=== PATIENT | female | born 1940 | race Caucasian/White ===

== ENCOUNTER 2020-04-12 04:56 | Day surgery (SDC) | payer BC ==
[2020-04-09 17:09] VITALS: BMI 31.2
[2020-04-12 13:02] VITALS: TEMP 97.9
[2020-04-12 13:08] VITALS: BP 160/90; PULSE 74
--- NOTE | 2020-04-15 11:04 | PATH ---
Surgical Pathology Report Patient Name: TRAN JEAN [facility]. Rec. #: [id number] /Age/Gender: 1940 (Age: 79) / F Account: [id number] Location: RADIOLOGY INTER Taken: 04/12/2020 Received: 04/13/2020 Reported: 04/15/2020 Physicians: Dara Wren M.D. 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 DEEPER LEVELS HAVE BEEN EXAMINED. SEE COMMENT. Comment: Findings are insufficient for definitive evaluation. In view of the clinical presentation of large calf mass and worrisome imaging findings, repeat sampling with larger tissue sample for diagnosis and possible (molecular) work-up is suggested. Electronically Signed Nneka Landaverde M.D. Gross Description Received in formalin labeled "left calf biopsy," is a 1.0 x 0.6 x 0.1 cm aggregate of armstrong soft tissue fragments. The formalin is filtered and the specimen is entirely submitted in one cassette. /04/13/2020 saudi04/13/2020
== END 2020-04-12 12:30 | disposition home or self-care (01) ==
LOC: JRADIR 04:56
PROVIDERS: ATTEND Family Medicine
PROC: 0KBT0ZX Excision of Left Lower Leg Muscle, Open Approach, Diagnostic (ICD-10-PCS; principal; 2020-04-12)
DX: D48.1 Neoplasm of uncertain behavior of connective and other soft tissue (principal)
CPT/HCPCS: 20206; 88305-TC

== ENCOUNTER 2022-03-12 19:00 | Emergency (ER) | payer BC ==
[2022-03-12 19:46] VITALS: PULSE 76; TEMP 98.9; BMI 29.2
[2022-03-12 20:44] LABS: BASO % 0.7 % (0-2.0); EOS % 1.2 % (0-4.5); HEMATOCRIT 32.7 % (32.4-45.2); HEMOGLOBIN 10.7 GM/dL (10.7-15.3); LYMPH % 15.2 % (8-40); MCH 29.4 pg (25.7-33.7); MCHC 32.7 g/dl (32.0-36.0); MEAN CELL VOLUME 89.9 fl (80-96); MONO % 4.6 % (3.8-10.2); NEUT % 78.3 % (42.8-82.8); PLATELET COUNT 332 10^3/uL (134-434); RBC 3.64 M/mm3 (3.60-5.2); RDW 17.4 % (11.6-15.6); WHITE BLOOD COUNT 12.6 K/mm3 (4.0-10.0)
[2022-03-12 20:55] LABS: ALBUMIN 3.8 g/dl (3.4-5.0); CALCIUM 9.4 mg/dL (8.5-10.1)
[2022-03-12 20:58] LABS: CREATININE 1.3 mg/dL (0.55-1.3)
[2022-03-12 21:00] LABS: BILIRUBIN,TOTAL 0.7 mg/dL (0.2-1)
[2022-03-12 21:03] LABS: N-TERMINAL BNP 830.6 pg/ml (5-450)
[2022-03-12 21:17] LABS: TOT PROT 7.3 g/dl (6.4-8.2)
[2022-03-12] MEDS ORDERED: DOXYCYCLINE HYCLATE 100 MG CAPSULE PO ONE ×2 (21:35→22:12)
[2022-03-12] MEDS ORDERED: FUROSEMIDE 40 MG/4 ML INJECTABLE VIAL IVPUSH ONE (22:46)
[2022-03-12] MEDS ORDERED: FUROSEMIDE 40 MG/4 ML INJECTABLE VIAL ONE (23:16)
[2022-03-13 00:24] VITALS: BP 158/84
== END 2022-03-13 00:24 | disposition home or self-care (01) ==
LOC: JER 19:00
PROC: 3E033NZ Introduction of Analgesics, Hypnotics, Sedatives into Peripheral Vein, Percutaneous Approach (ICD-10-PCS; principal; 2022-03-12)
DX: R60.9 Edema, unspecified (principal); L03.116 Cellulitis of left lower limb
CPT/HCPCS: 36415; 71046-TC-FY; 80053; 83880; 84484; 85025; 93005; 93010; 93970-TC; 96374; 99284-25; C9803-CS; U0003; U0005

== ENCOUNTER 2022-03-29 14:01 | Inpatient (IN) | payer BC ==
[2022-03-29 15:49] LABS: HEMATOCRIT 33.7 % (32.4-45.2); HEMOGLOBIN 10.7 GM/dL (10.7-15.3); MCH 27.4 pg (25.7-33.7); MCHC 31.6 g/dl (32.0-36.0); MEAN CELL VOLUME 86.5 fl (80-96); MEAN PLT VOLUME 9.4 fl (7.5-11.1); PLATELET COUNT 237 10^3/uL (134-434); RBC 3.89 M/mm3 (3.60-5.2); RDW 16.3 % (11.6-15.6); WHITE BLOOD COUNT 14.1 K/mm3 (4.0-10.0)
[2022-03-29 15:52] LABS: INR 1.09 (0.83-1.09); PROTHROMBIN TIME (PATIENT) 12.6 SEC (9.7-13.0)
[2022-03-29 15:55] LABS: ACTIVATED PTT 19.1 SECONDS (25.2-36.5)
[2022-03-29 16:08] LABS: CALCIUM 9.1 mg/dL (8.5-10.1)
[2022-03-29 16:09] LABS: ALBUMIN 3.3 g/dl (3.4-5.0); BLOOD UREA NITROGEN 15.2 mg/dL (7-18)
[2022-03-29 16:12] LABS: CREATININE 0.9 mg/dL (0.55-1.3)
[2022-03-29 16:13] LABS: TOT PROT 7.4 g/dl (6.4-8.2)
[2022-03-29 16:14] LABS: BILIRUBIN,TOTAL 0.9 mg/dL (0.2-1)
[2022-03-29 16:17] LABS: N-TERMINAL BNP 949.8 pg/ml (5-450)
[2022-03-29 17:12] LABS: ANISOCYTOSIS 1+; MACROCYTOSIS 0
[2022-03-29] MEDS ORDERED: AZITHROMYCIN IVPB 500 MG in DEXTROSE 5%-WATER - 250 ML IVPB ONE (17:55)
[2022-03-29] MEDS ORDERED: CEFTRIAXONE 1 GM in DEXTROSE 5%-WATER - 100 ML IVPB ONE (17:55)
[2022-03-29] MEDS ORDERED: methylPREDNISolone NA SUCC 125 MG/2 ML VIAL IVPUSH ONE (17:56)
[2022-03-29] MEDS: ALBUTEROL SO4 2.5/IPRATROPIUM 0.5 INH SOL 3 ML VIAL.NEB. NEB SCH ×3 (18:00→18:38)
[2022-03-29] MEDS ORDERED: ALBUTEROL SO4 2.5/IPRATROPIUM 0.5 INH SOL 3 ML VIAL.NEB. NEB ONE (18:22)
[2022-03-29] MEDS ORDERED: methylPREDNISolone NA SUCC 125 MG/2 ML VIAL ONE (18:23)
[2022-03-29] MEDS ORDERED: CEFTRIAXONE 1 GM/50 ML BAG ONE (18:23)
[2022-03-29] MEDS ORDERED: AZITHROMYCIN IVPB 500 MG/250 ML BAG IVPB ONE (18:23)
[2022-03-29 21:22] LABS: EPI CELLS 33 /uL (0-25.1); HYALINE CASTS 2 /uL (0-3.1); URINE APPEARANCE Clear; URINE BACTERIA 23 /uL (0-1359); URINE BILIRUBIN Negative (NEGATIVE); URINE COLOR Yellow; URINE GLUCOSE (UA) Negative (NEGATIVE); URINE KETONE Negative (NEGATIVE); URINE LEUK ESTERASE Negative (NEGATIVE); URINE NITRITE Negative (NEGATIVE); URINE PROTEIN 30 (NEGATIVE); URINE RBC 17 /uL (0-23.9); URINE UROBILINOGEN 0.2 mg/dL (0.2-1.0); URINE WBC 11 /uL (0-25.8)
[2022-03-30] MEDS ORDERED: INSULIN SLIDING SCALE (NOVOLOG) 1 VIAL SQ SCH (07:00)
[2022-03-30] MEDS ORDERED: CEFTRIAXONE 1 GM/50 ML BAG ONE (07:40)
[2022-03-30] MEDS: FAMOTIDINE 20 MG/50 ML IVPB 20 MG/50 ML MG IVPB SCH ×2 (07:53)
[2022-03-30] MEDS: CEFTRIAXONE 1 GM in DEXTROSE 5%-WATER - 50 ML IVPB SCH ×2 (07:53)
[2022-03-30] MEDS ORDERED: AZITHROMYCIN IVPB 250 MG in DEXTROSE 5%-WATER - 250 ML IVPB SCH ×2 (08:01→10:00)
[2022-03-30 08:14] LABS: HEMATOCRIT 29.4 % (32.4-45.2); HEMOGLOBIN 9.6 GM/dL (10.7-15.3); MCH 27.9 pg (25.7-33.7); MCHC 32.5 g/dl (32.0-36.0); MEAN CELL VOLUME 85.8 fl (80-96); MEAN PLT VOLUME 9.6 fl (7.5-11.1); PLATELET COUNT 221 10^3/uL (134-434); RBC 3.42 M/mm3 (3.60-5.2); RDW 16.7 % (11.6-15.6); WHITE BLOOD COUNT 10.3 K/mm3 (4.0-10.0)
[2022-03-30 08:43] LABS: BLOOD UREA NITROGEN 12.1 mg/dL (7-18); CALCIUM 9.1 mg/dL (8.5-10.1); MAGNESIUM 2.5 mg/dL (1.8-2.4)
[2022-03-30 08:46] LABS: CREATININE 0.8 mg/dL (0.55-1.3); PHOSPHOROUS 4.9 mg/dL (2.5-4.9)
[2022-03-30 08:47] LABS: BILIRUBIN,TOTAL 0.7 mg/dL (0.2-1)
[2022-03-30 08:48] LABS: TOT PROT 6.7 g/dl (6.4-8.2)
[2022-03-30] MEDS ORDERED: DEXAMETHASONE SOD PHOSPHATE 10 MG/1 ML VIAL ONE (09:19)
[2022-03-30] MEDS ORDERED: NICOTINE 14 MG/24 HOURS TOPICAL PATCH TD ONE (09:19)
[2022-03-30] MEDS ORDERED: HYDROCHLOROTHIAZIDE 25 MG TABLET (FP) ONE (09:19)
[2022-03-30] MEDS ORDERED: ENOXAPARIN NA (PORCINE) 40 MG/0.4 ML DISP.SYRIN SQ ONE (09:19)
[2022-03-30] MEDS ORDERED: REMDESIVIR 100 MG in SODIUM CHLORIDE 270 ML IVPB ONE (10:00)
[2022-03-30] MEDS ORDERED: DEXAMETHASONE SOD PHOSPHATE 4 MG/1 ML VIAL IVPUSH SCH (10:00)
[2022-03-30] MEDS ORDERED: CEFTRIAXONE 1 GM in DEXTROSE 5%-WATER - 50 ML IVPB SCH (10:00)
[2022-03-30] MEDS: ENOXAPARIN NA (PORCINE) 40 MG/0.4 ML DISP.SYRIN SQ SCH (10:25)
[2022-03-30] MEDS: NICOTINE 14 MG/24 HOURS TOPICAL PATCH TD SCH (10:25)
[2022-03-30] MEDS: HYDROCHLOROTHIAZIDE 25 MG TABLET (FP) PO SCH (10:25)
[2022-03-30] MEDS: INSULIN SLIDING SCALE (NOVOLOG) 1 VIAL SQ SCH ×3 (10:26→21:54)
[2022-03-30] MEDS ORDERED: REMDESIVIR 200 MG in SODIUM CHLORIDE 250 ML IVPB ONE (11:00)
[2022-03-30] MEDS ORDERED: methylPREDNISolone NA SUCC 40 MG/1 ML VIAL ONE ×2 (14:30→17:46)
[2022-03-30] MEDS ORDERED: ACETAMINOPHEN 500 MG TABLET (FP) ONE (14:30)
[2022-03-30] MEDS ORDERED: ACETAMINOPHEN 500 MG TABLET (FP) PO ONE (14:30)
[2022-03-30] MEDS: methylPREDNISolone NA SUCC 40 MG/1 ML VIAL IVPUSH SCH ×2 (14:38→18:46)
[2022-03-30] MEDS: ROSUVASTATIN CA 20 MG TABLET PO SCH (22:42)
[2022-03-31] MEDS: methylPREDNISolone NA SUCC 40 MG/1 ML VIAL IVPUSH SCH ×3 (01:27→17:57)
[2022-03-31] MEDS: INSULIN SLIDING SCALE (NOVOLOG) 1 VIAL SQ SCH ×4 (06:20→21:05)
[2022-03-31] MEDS: FAMOTIDINE 20 MG/50 ML IVPB 20 MG/50 ML MG IVPB SCH (11:14)
[2022-03-31] MEDS: NICOTINE 14 MG/24 HOURS TOPICAL PATCH TD SCH (11:14)
[2022-03-31] MEDS: HYDROCHLOROTHIAZIDE 25 MG TABLET (FP) PO SCH (11:14)
[2022-03-31] MEDS: ENOXAPARIN NA (PORCINE) 40 MG/0.4 ML DISP.SYRIN SQ SCH (11:14)
[2022-03-31] MEDS: REMDESIVIR 100 MG in SODIUM CHLORIDE 250 ML IVPB SCH (12:06)
[2022-03-31 12:09] LABS: HEMATOCRIT 30.3 % (32.4-45.2); HEMOGLOBIN 9.5 GM/dL (10.7-15.3); MCHC 31.3 g/dl (32.0-36.0); MEAN CELL VOLUME 86.2 fl (80-96); MEAN PLT VOLUME 10.3 fl (7.5-11.1); PLATELET COUNT 287 10^3/uL (134-434); RBC 3.51 M/mm3 (3.60-5.2); WHITE BLOOD COUNT 18.9 K/mm3 (4.0-10.0)
[2022-03-31 12:47] LABS: BLOOD UREA NITROGEN 31.3 mg/dL (7-18); CALCIUM 9.6 mg/dL (8.5-10.1)
[2022-03-31] MEDS ORDERED: INSULIN (NOVOLOG) ASPART 100 UNITS/ML 10ML VIAL ONE (21:00)
[2022-03-31] MEDS: ROSUVASTATIN CA 20 MG TABLET PO SCH (21:04)
[2022-04-01] MEDS: methylPREDNISolone NA SUCC 40 MG/1 ML VIAL IVPUSH SCH ×3 (02:47→16:59)
[2022-04-01] MEDS: INSULIN SLIDING SCALE (NOVOLOG) 1 VIAL SQ SCH ×4 (06:07→22:07)
[2022-04-01] MEDS: NICOTINE 14 MG/24 HOURS TOPICAL PATCH TD SCH (09:55)
[2022-04-01] MEDS: FAMOTIDINE 20 MG/50 ML IVPB 20 MG/50 ML MG IVPB SCH (09:55)
[2022-04-01] MEDS: HYDROCHLOROTHIAZIDE 25 MG TABLET (FP) PO SCH (09:58)
[2022-04-01] MEDS: ENOXAPARIN NA (PORCINE) 40 MG/0.4 ML DISP.SYRIN SQ SCH (09:58)
[2022-04-01 10:07] LABS: HEMATOCRIT 30.8 % (32.4-45.2); HEMOGLOBIN 9.9 GM/dL (10.7-15.3); MCH 27.3 pg (25.7-33.7); MCHC 32.2 g/dl (32.0-36.0); MEAN PLT VOLUME 9.9 fl (7.5-11.1); PLATELET COUNT 293 10^3/uL (134-434); RBC 3.63 M/mm3 (3.60-5.2); RDW 16.5 % (11.6-15.6); WHITE BLOOD COUNT 14.6 K/mm3 (4.0-10.0)
[2022-04-01 10:25] LABS: CALCIUM 9.4 mg/dL (8.5-10.1)
[2022-04-01 10:26] LABS: ALBUMIN 2.9 g/dl (3.4-5.0); BLOOD UREA NITROGEN 30.4 mg/dL (7-18)
[2022-04-01 10:29] LABS: CREATININE 0.9 mg/dL (0.55-1.3)
[2022-04-01 10:30] LABS: BILIRUBIN,TOTAL 0.7 mg/dL (0.2-1); TOT PROT 6.3 g/dl (6.4-8.2)
[2022-04-01] MEDS: REMDESIVIR 100 MG in SODIUM CHLORIDE 250 ML IVPB SCH (11:25)
[2022-04-01] MEDS ORDERED: POLYETHYLENE GLYCOL (HEALTHYLAX) 3350 17 GM PACKET PO ONE (13:00)
[2022-04-01] MEDS ORDERED: INSULIN (NOVOLOG) ASPART 100 UNITS/ML 10ML VIAL ONE (16:44)
[2022-04-01] MEDS ORDERED: POTASSIUM CHLORIDE TABS 20 MEQ TABLET.ER (FP) PO ONE (18:20)
[2022-04-01 19:12] VITALS: BMI 26.1
[2022-04-01] MEDS: ROSUVASTATIN CA 20 MG TABLET PO SCH (22:07)
[2022-04-02] MEDS: methylPREDNISolone NA SUCC 40 MG/1 ML VIAL IVPUSH SCH ×2 (01:25→09:58)
[2022-04-02] MEDS: INSULIN SLIDING SCALE (NOVOLOG) 1 VIAL SQ SCH ×4 (06:25→21:27)
[2022-04-02] MEDS ORDERED: diazePAM 2 MG TABLET PO PRN (09:53)
[2022-04-02] MEDS: FAMOTIDINE 20 MG/50 ML IVPB 20 MG/50 ML MG IVPB SCH (09:58)
[2022-04-02] MEDS: ENOXAPARIN NA (PORCINE) 40 MG/0.4 ML DISP.SYRIN SQ SCH (09:58)
[2022-04-02] MEDS: NICOTINE 14 MG/24 HOURS TOPICAL PATCH TD SCH (09:58)
[2022-04-02] MEDS: HYDROCHLOROTHIAZIDE 25 MG TABLET (FP) PO SCH (09:59)
[2022-04-02] MEDS: REMDESIVIR 100 MG in SODIUM CHLORIDE 250 ML IVPB SCH (11:49)
[2022-04-02] MEDS: ROSUVASTATIN CA 20 MG TABLET PO SCH (21:27)
[2022-04-02] MEDS: MELATONIN 5 MG TABLETS PO PRN (21:27)
[2022-04-03] MEDS: INSULIN SLIDING SCALE (NOVOLOG) 1 VIAL SQ SCH ×4 (06:21→21:01)
[2022-04-03 09:40] LABS: HEMATOCRIT 32.9 % (32.4-45.2); HEMOGLOBIN 10.6 GM/dL (10.7-15.3); MCH 27.1 pg (25.7-33.7); MCHC 32.1 g/dl (32.0-36.0); MEAN CELL VOLUME 84.4 fl (80-96); MEAN PLT VOLUME 9.7 fl (7.5-11.1); PLATELET COUNT 291 10^3/uL (134-434); RDW 16.4 % (11.6-15.6); WHITE BLOOD COUNT 10.8 K/mm3 (4.0-10.0)
[2022-04-03] MEDS: FAMOTIDINE 20 MG/50 ML IVPB 20 MG/50 ML MG IVPB SCH (10:09)
[2022-04-03] MEDS: ENOXAPARIN NA (PORCINE) 40 MG/0.4 ML DISP.SYRIN SQ SCH (10:09)
[2022-04-03] MEDS: NICOTINE 14 MG/24 HOURS TOPICAL PATCH TD SCH (10:09)
[2022-04-03] MEDS: methylPREDNISolone NA SUCC 40 MG/1 ML VIAL IVPUSH SCH (10:10)
[2022-04-03] MEDS: HYDROCHLOROTHIAZIDE 25 MG TABLET (FP) PO SCH (10:10)
[2022-04-03 10:29] LABS: CALCIUM 9.2 mg/dL (8.5-10.1)
[2022-04-03 10:30] LABS: ALBUMIN 2.9 g/dl (3.4-5.0); BLOOD UREA NITROGEN 35.4 mg/dL (7-18)
[2022-04-03 10:35] LABS: BILIRUBIN,TOTAL 0.4 mg/dL (0.2-1)
[2022-04-03] MEDS: REMDESIVIR 100 MG in SODIUM CHLORIDE 250 ML IVPB SCH (11:36)
[2022-04-03] MEDS: KCL 10 MEQ IVPB 10 MEQ/100 ML INFUS.BAG IVPB SCH ×3 (16:36→18:41)
[2022-04-03] MEDS: ROSUVASTATIN CA 20 MG TABLET PO SCH (21:00)
[2022-04-04] MEDS: INSULIN SLIDING SCALE (NOVOLOG) 1 VIAL SQ SCH ×4 (06:27→21:44)
[2022-04-04] MEDS: FAMOTIDINE 20 MG/50 ML IVPB 20 MG/50 ML MG IVPB SCH (10:51)
[2022-04-04] MEDS: methylPREDNISolone NA SUCC 40 MG/1 ML VIAL IVPUSH SCH (10:51)
[2022-04-04] MEDS: NICOTINE 14 MG/24 HOURS TOPICAL PATCH TD SCH (10:51)
[2022-04-04] MEDS: ENOXAPARIN NA (PORCINE) 40 MG/0.4 ML DISP.SYRIN SQ SCH (10:52)
[2022-04-04] MEDS: HYDROCHLOROTHIAZIDE 25 MG TABLET (FP) PO SCH (10:52)
[2022-04-04 11:20] LABS: HEMATOCRIT 35.8 % (32.4-45.2); HEMOGLOBIN 11.4 GM/dL (10.7-15.3); MCH 27.4 pg (25.7-33.7); MCHC 31.9 g/dl (32.0-36.0); MEAN CELL VOLUME 85.8 fl (80-96); MEAN PLT VOLUME 10.3 fl (7.5-11.1); PLATELET COUNT 342 10^3/uL (134-434); RBC 4.18 M/mm3 (3.60-5.2); RDW 16.3 % (11.6-15.6); WHITE BLOOD COUNT 14.2 K/mm3 (4.0-10.0)
[2022-04-04 11:48] LABS: CHLORIDE 90 mmol/L (98-107); SODIUM 140 mmol/L (136-145)
[2022-04-04 11:50] LABS: ALBUMIN 3.1 g/dl (3.4-5.0); BLOOD UREA NITROGEN 30.6 mg/dL (7-18); CALCIUM 9.5 mg/dL (8.5-10.1); GLUCOSE,RANDOM 160 mg/dL (74-106)
[2022-04-04 11:53] LABS: CREATININE 1.1 mg/dL (0.55-1.3)
[2022-04-04 11:54] LABS: SGOT/AST 30 U/L (15-37)
[2022-04-04 11:55] LABS: BILIRUBIN,TOTAL 0.5 mg/dL (0.2-1); TOT PROT 6.5 g/dl (6.4-8.2)
[2022-04-04 11:56] LABS: ALK PHOS 70 U/L (45-117)
[2022-04-04 12:00] LABS: ANION GAP 6 MMOL/L (8-16); CO2 > 45 mmol/L (21-32); SGPT/ALT 43 U/L (13-61)
[2022-04-04 14:17] LABS: ARTERIAL BLD GAS O2 SATURATION 98.5 % (95-98); ARTERIAL BLOOD GAS BASE EXCESS 15.5 mmol/L (-2-2); ARTERIAL BLOOD GAS PO2 126.5 mmHg (80-100); ARTERIAL BLOOD GAS pH 7.424 (7.350-7.450)
[2022-04-04 14:19] LABS: ALLENS TEST POSITIVE
[2022-04-04] MEDS: ROSUVASTATIN CA 20 MG TABLET PO SCH (21:42)
[2022-04-05] MEDS: INSULIN SLIDING SCALE (NOVOLOG) 1 VIAL SQ SCH ×4 (06:11→22:55)
[2022-04-05 09:08] LABS: HEMATOCRIT 36.9 % (32.4-45.2); HEMOGLOBIN 11.6 GM/dL (10.7-15.3); MCH 26.7 pg (25.7-33.7); MCHC 31.4 g/dl (32.0-36.0); MEAN CELL VOLUME 85.1 fl (80-96); MEAN PLT VOLUME 9.8 fl (7.5-11.1); PLATELET COUNT 286 10^3/uL (134-434); RBC 4.33 M/mm3 (3.60-5.2); RDW 16.6 % (11.6-15.6); WHITE BLOOD COUNT 14.4 K/mm3 (4.0-10.0)
[2022-04-05] MEDS: methylPREDNISolone NA SUCC 40 MG/1 ML VIAL IVPUSH SCH (10:09)
[2022-04-05] MEDS: FAMOTIDINE 20 MG/50 ML IVPB 20 MG/50 ML MG IVPB SCH (10:09)
[2022-04-05] MEDS: ENOXAPARIN NA (PORCINE) 40 MG/0.4 ML DISP.SYRIN SQ SCH (10:09)
[2022-04-05] MEDS: NICOTINE 14 MG/24 HOURS TOPICAL PATCH TD SCH (10:10)
[2022-04-05] MEDS: HYDROCHLOROTHIAZIDE 25 MG TABLET (FP) PO SCH (10:10)
[2022-04-05 10:20] LABS: ALBUMIN 3.2 g/dl (3.4-5.0); BILIRUBIN,TOTAL 0.5 mg/dL (0.2-1); BLOOD UREA NITROGEN 28.2 mg/dL (7-18); CALCIUM 9.3 mg/dL (8.5-10.1); TOT PROT 6.4 g/dl (6.4-8.2)
[2022-04-05] MEDS: ROSUVASTATIN CA 20 MG TABLET PO SCH (22:54)
[2022-04-06] MEDS: INSULIN SLIDING SCALE (NOVOLOG) 1 VIAL SQ SCH ×4 (06:30→21:59)
[2022-04-06 08:22] LABS: HEMATOCRIT 38.8 % (32.4-45.2); HEMOGLOBIN 12.4 GM/dL (10.7-15.3); MCH 27.3 pg (25.7-33.7); MCHC 31.9 g/dl (32.0-36.0); MEAN CELL VOLUME 85.5 fl (80-96); MEAN PLT VOLUME 9.6 fl (7.5-11.1); PLATELET COUNT 233 10^3/uL (134-434); RBC 4.54 M/mm3 (3.60-5.2); RDW 17.1 % (11.6-15.6); WHITE BLOOD COUNT 13.6 K/mm3 (4.0-10.0)
[2022-04-06 08:48] LABS: BLOOD UREA NITROGEN 31.2 mg/dL (7-18); CALCIUM 9.2 mg/dL (8.5-10.1)
[2022-04-06] MEDS: NICOTINE 14 MG/24 HOURS TOPICAL PATCH TD SCH (09:16)
[2022-04-06] MEDS: FAMOTIDINE 20 MG/50 ML IVPB 20 MG/50 ML MG IVPB SCH (09:16)
[2022-04-06] MEDS: ENOXAPARIN NA (PORCINE) 40 MG/0.4 ML DISP.SYRIN SQ SCH (09:16)
[2022-04-06] MEDS: predniSONE 20 MG TABLET (UD) PO SCH (11:40)
[2022-04-06] MEDS: ROSUVASTATIN CA 20 MG TABLET PO SCH (21:58)
[2022-04-07] MEDS: MELATONIN 5 MG TABLETS PO PRN (01:03)
[2022-04-07] MEDS: INSULIN SLIDING SCALE (NOVOLOG) 1 VIAL SQ SCH ×2 (06:15→12:36)
[2022-04-07 08:19] VITALS: RESP 18
[2022-04-07] MEDS: NICOTINE 14 MG/24 HOURS TOPICAL PATCH TD SCH (10:24)
[2022-04-07] MEDS: FAMOTIDINE 20 MG/50 ML IVPB 20 MG/50 ML MG IVPB SCH (10:24)
[2022-04-07] MEDS: ENOXAPARIN NA (PORCINE) 40 MG/0.4 ML DISP.SYRIN SQ SCH (10:25)
[2022-04-07] MEDS: predniSONE 20 MG TABLET (UD) PO SCH (10:25)
[2022-04-07 12:41] VITALS: BP 130/62; PULSE 66; TEMP 97.8
== END 2022-04-07 14:41 | disposition home health service (06) | DRG 177 ==
LOC: JER 14:01 → JERBED 03-30 00:28 → J6S 03-30 21:47 → J7W 04-04 22:38
PROVIDERS: ADMIT Internal Medicine; ATTEND Internal Medicine
PROC: 3E0333Z Introduction of Anti-inflammatory into Peripheral Vein, Percutaneous Approach (ICD-10-PCS; principal; 2022-03-30)
PROC: XW033E5 Introduction of Remdesivir Anti-infective into Peripheral Vein, Percutaneous Approach, New Technology Group 5 (ICD-10-PCS; 2022-03-30)
DX: U07.1 COVID-19 (principal); J12.82 Pneumonia due to coronavirus disease 2019; J96.01 Acute respiratory failure with hypoxia; J98.11 Atelectasis; E78.5 Hyperlipidemia, unspecified; E11.9 Type 2 diabetes mellitus without complications; F17.210 Nicotine dependence, cigarettes, uncomplicated; F41.0 Panic disorder [episodic paroxysmal anxiety]; G47.00 Insomnia, unspecified; E87.6 Hypokalemia; F41.1 Generalized anxiety disorder; I11.0 Hypertensive heart disease with heart failure; I50.9 Heart failure, unspecified; J44.9 Chronic obstructive pulmonary disease, unspecified; D64.9 Anemia, unspecified; E88.81 Metabolic syndrome and other insulin resistance; Z86.018 Personal history of other benign neoplasm
CPT/HCPCS: 0241U-QW; 36415; 36600; 70450-TC; 71045-TC-FY; 71275-TC; 80048; 80053; 81003; 82728; 82803; 82962; 83036; 83615; 83735; 83880; 84100; 84484; 85025; 85027; 85379; 85610; 85651; 85730; 86140; 87086; 87186; 93005; 93010; 94660; 94761; 97116-GP; 97161-GP; 99285-25; C9399; C9803-CS; Q9967; U0003; U0005

== ENCOUNTER 2024-02-25 10:56 | Inpatient (IN) | payer BC, OTHER ==
[2024-02-25 12:52] LABS: BASO % 0.7 % (0-2.0); EOS % 0.4 % (0-4.5); HEMATOCRIT 33.4 % (32.4-45.2); HEMOGLOBIN 11.1 GM/dL (10.7-15.3); LYMPH % 7.4 % (8-40); MCH 26.3 pg (25.7-33.7); MCHC 33.1 g/dl (32.0-36.0); MEAN CELL VOLUME 79.2 fl (80-96); NEUT % 84.5 % (42.8-82.8); PLATELET COUNT 296 10^3/uL (134-434); RBC 4.21 M/mm3 (3.60-5.2); RDW 17.5 % (11.6-15.6); WHITE BLOOD COUNT 15.4 K/mm3 (4.0-10.0)
[2024-02-25 13:00] LABS: INR 1.17 (0.83-1.09); PROTHROMBIN TIME (PATIENT) 13.4 SEC (9.7-13.0)
[2024-02-25 13:03] LABS: ACTIVATED PTT 31.2 SECONDS (25.2-36.5)
[2024-02-25] MEDS: SODIUM CHLORIDE 500 ML IV STA (13:03)
[2024-02-25 13:20] LABS: CHLORIDE 93 mmol/L (98-107); SODIUM 134 mmol/L (136-145)
[2024-02-25 13:29] LABS: ALBUMIN 3.9 g/dl (3.4-5.0)
[2024-02-25 13:30] LABS: BLOOD UREA NITROGEN 31.5 mg/dL (7-18); CALCIUM 9.1 mg/dL (8.5-10.1); CO2 30 mmol/L (21-32); GLUCOSE,RANDOM 103 mg/dL (74-106); MAGNESIUM 2.4 mg/dL (1.8-2.4)
[2024-02-25 13:33] LABS: SGOT/AST 26 U/L (15-37); SGPT/ALT 21 U/L (13-61)
[2024-02-25 13:35] LABS: BILIRUBIN,TOTAL 0.9 mg/dL (0.2-1); TOT PROT 7.3 g/dl (6.4-8.2)
[2024-02-25 13:36] LABS: ALK PHOS 92 U/L (45-117)
[2024-02-25 13:40] LABS: ANION GAP 12 mmol/L (4-13); POTASSIUM 2.6 mmol/L (3.5-5.1)
[2024-02-25] MEDS: POTASSIUM CHLORIDE TABS 20 MEQ TABLET.ER (FP) PO ONE (14:02)
[2024-02-25] MEDS ORDERED: POTASSIUM CHLORIDE ORAL LIQUID 20 MEQ/15 ML ONE (15:01)
[2024-02-25] MEDS ORDERED: KCL 10 MEQ IVPB 10 MEQ/100 ML INFUS.BAG IVPB ONE ×2 (15:01→16:37)
[2024-02-25] MEDS: KCL 10 MEQ IVPB 10 MEQ/100 ML INFUS.BAG IVPB SCH (15:20)
[2024-02-25] MEDS: POTASSIUM CHLORIDE ORAL LIQUID 20 MEQ/15 ML PO ONE (15:20)
[2024-02-25] MEDS ORDERED: ONDANSETRON 4 MG/2 ML VIAL ONE (15:26)
[2024-02-25] MEDS: ONDANSETRON 4 MG/2 ML VIAL IVPUSH ONE (15:29)
[2024-02-25 18:10] LABS: EPI CELLS >36 /uL (0-25.1); HYALINE CASTS 1 /uL (0-3.1); URINE APPEARANCE CLEAR; URINE BACTERIA 23 /uL (0-1359); URINE BILIRUBIN NEGATIVE (NEGATIVE); URINE COLOR YELLOW; URINE GLUCOSE (UA) NEGATIVE (NEGATIVE); URINE KETONE 1+ (NEGATIVE); URINE LEUK ESTERASE NEGATIVE (NEGATIVE); URINE NITRITE NEGATIVE (NEGATIVE); URINE PROTEIN 2+ (NEGATIVE); URINE RBC 23 /uL (0-23.9); URINE WBC 21 /uL (0-25.8)
[2024-02-26 00:59] VITALS: BMI 27.1
[2024-02-26] MEDS: metFORMIN HCL 500 MG TABLET (FP) PO SCH (06:40)
[2024-02-26 08:13] LABS: BASO % 0.9 % (0-2.0); EOS % 1.7 % (0-4.5); HEMATOCRIT 30.4 % (32.4-45.2); HEMOGLOBIN 9.9 GM/dL (10.7-15.3); LYMPH % 12.3 % (8-40); MCH 26.2 pg (25.7-33.7); MCHC 32.5 g/dl (32.0-36.0); MEAN CELL VOLUME 80.8 fl (80-96); MEAN PLT VOLUME 9.8 fl (7.5-11.1); MONO % 6.6 % (3.8-10.2); NEUT % 78.5 % (42.8-82.8); PLATELET COUNT 247 10^3/uL (134-434); RBC 3.76 M/mm3 (3.60-5.2); RDW 17.1 % (11.6-15.6); WHITE BLOOD COUNT 10.7 K/mm3 (4.0-10.0)
[2024-02-26 08:16] LABS: POTASSIUM 3.7 mmol/L (3.5-5.1)
[2024-02-26 08:20] LABS: BLOOD UREA NITROGEN 29.5 mg/dL (7-18)
[2024-02-26 08:22] LABS: CALCIUM 8.4 mg/dL (8.5-10.1)
[2024-02-26 08:24] LABS: CREATININE 1.6 mg/dL (0.55-1.3)
[2024-02-26 08:25] LABS: BILIRUBIN,TOTAL 0.9 mg/dL (0.2-1); TOT PROT 5.9 g/dl (6.4-8.2)
[2024-02-26] MEDS: CEFTRIAXONE 1 GM in DEXTROSE 5%-WATER - 50 ML IVPB SCH (10:00)
[2024-02-26] MEDS: HYDROCHLOROTHIAZIDE 25 MG TABLET (FP) PO SCH (10:03)
[2024-02-26] MEDS: CITALOPRAM HYDROBROMIDE 10 MG TABLET PO SCH (10:03)
[2024-02-26] MEDS: PANTOPRAZOLE 40 MG TABLET PO SCH (10:03)
[2024-02-26] MEDS ORDERED: ALBUTEROL SO4 HFA INHALER IH PRN (10:26)
[2024-02-26] MEDS: POTASSIUM CHLORIDE ORAL LIQUID 20 MEQ/15 ML PO ONE (13:48)
[2024-02-26] MEDS: ENOXAPARIN NA (PORCINE) 30 MG/0.3 ML DISP.SYRIN SQ SCH (13:58)
[2024-02-26] MEDS: BUDESONIDE/FORMETEROL FUMARATE 80/4.5 mcg INHALER IH SCH (17:09)
[2024-02-26] MEDS: POLYETHYLENE GLYCOL (HEALTHYLAX) 3350 17 GM PACKET PO SCH (21:17)
[2024-02-26] MEDS: ROSUVASTATIN CA 10 MG TABLET PO SCH (21:17)
[2024-02-27 08:25] LABS: EOS % 1.4 % (0-4.5); HEMATOCRIT 30.2 % (32.4-45.2); HEMOGLOBIN 10.1 GM/dL (10.7-15.3); LYMPH % 12.8 % (8-40); MCH 26.5 pg (25.7-33.7); MCHC 33.3 g/dl (32.0-36.0); MEAN CELL VOLUME 79.6 fl (80-96); MEAN PLT VOLUME 9.8 fl (7.5-11.1); MONO % 6.9 % (3.8-10.2); NEUT % 77.9 % (42.8-82.8); PLATELET COUNT 244 10^3/uL (134-434); RDW 17.3 % (11.6-15.6); WHITE BLOOD COUNT 10.9 K/mm3 (4.0-10.0)
[2024-02-27 08:45] LABS: POTASSIUM 3.4 mmol/L (3.5-5.1)
[2024-02-27 08:49] LABS: CALCIUM 8.4 mg/dL (8.5-10.1)
[2024-02-27 08:50] LABS: BLOOD UREA NITROGEN 26.5 mg/dL (7-18)
[2024-02-27 08:53] LABS: CREATININE 1.5 mg/dL (0.55-1.3)
[2024-02-27] MEDS: POTASSIUM CHLORIDE ORAL LIQUID 20 MEQ/15 ML PO SCH (09:55)
[2024-02-27] MEDS: FLUTICASONE/UMECLIDIN/VILANTER(100-62.5-25 TRELEGY ELLIPTA) INAHLER IH SCH (10:06)
[2024-02-28 07:21] LABS: POTASSIUM 3.6 mmol/L (3.5-5.1)
[2024-02-28 07:25] LABS: CALCIUM 8.8 mg/dL (8.5-10.1)
[2024-02-28 07:26] LABS: BLOOD UREA NITROGEN 25.8 mg/dL (7-18)
[2024-02-28 07:29] LABS: CREATININE 1.5 mg/dL (0.55-1.3)
[2024-02-28] MEDS ORDERED: cefTRIAXone SODIUM 1 GM VIAL ONE (09:34)
[2024-02-28] MEDS: MECLIZINE HCL 25 MG TABLET (FP) PO PRN (09:46)
[2024-02-28] MEDS: POLYETHYLENE GLYCOL (HEALTHYLAX) 3350 17 GM PACKET PO SCH (09:46)
[2024-02-28] MEDS ORDERED: POLYETHYLENE GLYCOL (HEALTHYLAX) 3350 17 GM PACKET PO SCH (10:00)
[2024-02-28] MEDS ORDERED: ACETAMINOPHEN 325 MG TABLET (FP) ONE (21:16)
[2024-02-29 08:51] LABS: POTASSIUM 3.7 mmol/L (3.5-5.1)
[2024-02-29 08:59] LABS: BLOOD UREA NITROGEN 22.1 mg/dL (7-18); CALCIUM 8.7 mg/dL (8.5-10.1)
[2024-02-29 09:03] LABS: CREATININE 1.3 mg/dL (0.55-1.3)
[2024-02-29] MEDS: ACETAMINOPHEN 325 MG TABLET (FP) PO PRN (23:33)
[2024-03-01 08:26] LABS: BASO % 1.3 % (0-2.0); EOS % 1.5 % (0-4.5); HEMATOCRIT 28.2 % (32.4-45.2); HEMOGLOBIN 9.3 GM/dL (10.7-15.3); LYMPH % 16.9 % (8-40); MCH 26.5 pg (25.7-33.7); MCHC 33.1 g/dl (32.0-36.0); MEAN CELL VOLUME 79.9 fl (80-96); MEAN PLT VOLUME 10.2 fl (7.5-11.1); MONO % 7.7 % (3.8-10.2); NEUT % 72.6 % (42.8-82.8); PLATELET COUNT 210 10^3/uL (134-434); RBC 3.53 M/mm3 (3.60-5.2); RDW 17.4 % (11.6-15.6); WHITE BLOOD COUNT 9.6 K/mm3 (4.0-10.0)
[2024-03-01 08:41] LABS: POTASSIUM 3.9 mmol/L (3.5-5.1)
[2024-03-01 08:48] LABS: CALCIUM 8.7 mg/dL (8.5-10.1)
[2024-03-01 08:49] LABS: BLOOD UREA NITROGEN 21.4 mg/dL (7-18)
[2024-03-01 08:52] LABS: CREATININE 1.3 mg/dL (0.55-1.3)
[2024-03-01 09:00] VITALS: BP 130/64; PULSE 72; RESP 18; TEMP 98.2
== END 2024-03-01 11:43 | disposition home or self-care (01) | DRG 312 ==
LOC: JER 10:56 → JERBED 13:46 → J4W 19:58 → OBSVTOIN 21:59
PROVIDERS: ADMIT Family Medicine; ATTEND Family Medicine
DX: R55 Syncope and collapse (principal); N17.9 Acute kidney failure, unspecified; E11.9 Type 2 diabetes mellitus without complications; I10 Essential (primary) hypertension; E78.5 Hyperlipidemia, unspecified; J44.9 Chronic obstructive pulmonary disease, unspecified; F17.210 Nicotine dependence, cigarettes, uncomplicated
CPT/HCPCS: 0241U-QW; 36415; 70450-TC; 70547-TC; 71046-TC-FY; 80048; 80053; 81003; 82550; 82962; 83735; 84484; 85025; 85610; 85730; 87086; 93005; 93010; 93306-TC; 93880-TC; 97116-GP; 97162-GP; 99285-25; G0378

== ENCOUNTER 2024-06-09 12:17 | Observation (INO) | payer BC, OTHER ==
[2024-06-09 14:43] LABS: BASO % 0.4 % (0-2.0); EOS % 0.3 % (0-4.5); HEMATOCRIT 24.2 % (32.4-45.2); HEMOGLOBIN 7.1 GM/dL (10.7-15.3); LYMPH % 8.2 % (8-40); MCHC 29.4 g/dl (32.0-36.0); MEAN CELL VOLUME 63.9 fl (80-96); MEAN PLT VOLUME 8.3 fl (7.5-11.1); MONO % 4.9 % (3.8-10.2); NEUT % 86.2 % (42.8-82.8); PLATELET COUNT 293 10^3/uL (134-434); RBC 3.79 M/mm3 (3.60-5.2); RDW 19.5 % (11.6-15.6); WHITE BLOOD COUNT 11.1 K/mm3 (4.0-10.0)
[2024-06-09 14:44] LABS: MCH 18.8 pg (25.7-33.7)
[2024-06-09 15:07] LABS: ANISOCYTOSIS 2+; MACROCYTOSIS 1+; OVALOCYTE 1+
[2024-06-09 15:16] LABS: POTASSIUM 4.2 mmol/L (3.5-5.1)
[2024-06-09 15:18] LABS: ALBUMIN 2.9 g/dl (3.4-5.0)
[2024-06-09 15:19] LABS: BLOOD UREA NITROGEN 14.3 mg/dL (7-18)
[2024-06-09 15:20] LABS: IRON SERUM 10 ug/dL (50-175)
[2024-06-09 15:21] LABS: CREATININE 0.9 mg/dL (0.55-1.3); TOTAL IRON BINDING CAPACITY 345 ug/dL (250-450)
[2024-06-09 15:23] LABS: BILIRUBIN,TOTAL 0.6 mg/dL (0.2-1); TOT PROT 6.3 g/dl (6.4-8.2)
[2024-06-09 16:27] LABS: INR 1.14 (0.83-1.09); PROTHROMBIN TIME (PATIENT) 13.1 SEC (9.7-13.0)
[2024-06-09 16:30] LABS: ACTIVATED PTT 30.3 SECONDS (25.2-36.5)
[2024-06-09] MEDS: ROSUVASTATIN CA 20 MG TABLET PO SCH (23:14)
[2024-06-10] MEDS: metFORMIN HCL 500 MG TABLET (FP) PO SCH (06:59)
[2024-06-10 09:07] LABS: BASO % 0.9 % (0-2.0); EOS % 1.6 % (0-4.5); HEMATOCRIT 26.5 % (32.4-45.2); HEMOGLOBIN 8.4 GM/dL (10.7-15.3); LYMPH % 11.5 % (8-40); MCH 21.1 pg (25.7-33.7); MCHC 31.7 g/dl (32.0-36.0); MEAN CELL VOLUME 66.3 fl (80-96); MEAN PLT VOLUME 9.1 fl (7.5-11.1); MONO % 6.7 % (3.8-10.2); NEUT % 79.3 % (42.8-82.8); PLATELET COUNT 269 10^3/uL (134-434); RDW 22.3 % (11.6-15.6); WHITE BLOOD COUNT 9.3 K/mm3 (4.0-10.0)
[2024-06-10 09:24] LABS: POTASSIUM 3.9 mmol/L (3.5-5.1)
[2024-06-10 09:25] LABS: ALBUMIN 2.8 g/dl (3.4-5.0); CALCIUM 8.9 mg/dL (8.5-10.1)
[2024-06-10 09:27] LABS: BLOOD UREA NITROGEN 13.6 mg/dL (7-18)
[2024-06-10 09:30] LABS: BILIRUBIN,TOTAL 1.6 mg/dL (0.2-1); CREATININE 0.8 mg/dL (0.55-1.3); TOT PROT 5.7 g/dl (6.4-8.2)
[2024-06-10 14:01] VITALS: BMI 25.7
[2024-06-10] MEDS: BISACODYL 5 MG TABLET.DR (FP) PO ONE (14:01)
[2024-06-10] MEDS: POLYETHYLENE GLYCOL 3350 255 GM BTL PO ONE (14:01)
[2024-06-10] MEDS ORDERED: ALBUTEROL SO4 0.083% IH SOL 2.5 MG/3 ML VIAL.NEB. NEB PRN (15:38)
[2024-06-10] MEDS: FLUTICASONE/UMECLIDIN/VILANTER(100-62.5-25 TRELEGY ELLIPTA) INAHLER IH SCH (17:38)
[2024-06-11 08:25] LABS: BASO % 0.8 % (0-2.0); HEMATOCRIT 31.6 % (32.4-45.2); LYMPH % 10.8 % (8-40); MCH 21.8 pg (25.7-33.7); MCHC 31.5 g/dl (32.0-36.0); MEAN CELL VOLUME 69.1 fl (80-96); MEAN PLT VOLUME 8.9 fl (7.5-11.1); NEUT % 79.4 % (42.8-82.8); PLATELET COUNT 269 10^3/uL (134-434); RBC 4.57 M/mm3 (3.60-5.2); RDW 22.5 % (11.6-15.6); WHITE BLOOD COUNT 10.3 K/mm3 (4.0-10.0)
[2024-06-11 08:39] LABS: POTASSIUM 3.8 mmol/L (3.5-5.1)
[2024-06-11 08:47] LABS: BLOOD UREA NITROGEN 9.6 mg/dL (7-18); CALCIUM 9.1 mg/dL (8.5-10.1)
[2024-06-11 08:50] LABS: CREATININE 0.8 mg/dL (0.55-1.3)
[2024-06-11] MEDS ORDERED: ALBUTEROL SO4 HFA INHALER IH ONE (13:17)
[2024-06-11] MEDS ORDERED: TETRACAINE/BENZOCAINE/BUTAMBEN 20 GM SPR TP ONE (13:17)
[2024-06-12 09:04] LABS: BASO % 1.2 % (0-2.0); EOS % 1.8 % (0-4.5); HEMATOCRIT 33.3 % (32.4-45.2); HEMOGLOBIN 10.2 GM/dL (10.7-15.3); LYMPH % 10.1 % (8-40); MCH 21.4 pg (25.7-33.7); MCHC 30.6 g/dl (32.0-36.0); MEAN PLT VOLUME 9.2 fl (7.5-11.1); NEUT % 81.9 % (42.8-82.8); PLATELET COUNT 285 10^3/uL (134-434); RBC 4.76 M/mm3 (3.60-5.2); RDW 23.3 % (11.6-15.6); WHITE BLOOD COUNT 12.2 K/mm3 (4.0-10.0)
[2024-06-12 09:17] LABS: CALCIUM 9.2 mg/dL (8.5-10.1)
[2024-06-12 09:18] LABS: BLOOD UREA NITROGEN 12.1 mg/dL (7-18)
[2024-06-12 09:21] LABS: CREATININE 0.8 mg/dL (0.55-1.3)
[2024-06-12] MEDS: DEXTROSE 50%-WATER 25 GM/50 ML DISP.SYRIN IVPUSH ONE (12:30)
[2024-06-12] MEDS ORDERED: DEXTROSE 50%-WATER - 25 GM/50 ML VIAL IVPUSH ONE (12:30)
[2024-06-13 09:46] LABS: EOS % 1.5 % (0-4.5); HEMATOCRIT 33.1 % (32.4-45.2); HEMOGLOBIN 10.7 GM/dL (10.7-15.3); MCHC 32.2 g/dl (32.0-36.0); MEAN CELL VOLUME 71.5 fl (80-96); MEAN PLT VOLUME 9.2 fl (7.5-11.1); MONO % 6.9 % (3.8-10.2); NEUT % 81.6 % (42.8-82.8); PLATELET COUNT 250 10^3/uL (134-434); RBC 4.63 M/mm3 (3.60-5.2); RDW 23.2 % (11.6-15.6); WHITE BLOOD COUNT 10.4 K/mm3 (4.0-10.0)
[2024-06-13 10:09] LABS: POTASSIUM 4.1 mmol/L (3.5-5.1)
[2024-06-13 10:12] LABS: CALCIUM 9.4 mg/dL (8.5-10.1)
[2024-06-13 10:13] LABS: BLOOD UREA NITROGEN 12.9 mg/dL (7-18)
[2024-06-13 10:16] LABS: CREATININE 0.9 mg/dL (0.55-1.3)
[2024-06-13 10:34] LABS: ANISOCYTOSIS 2+; MACROCYTOSIS 1+
[2024-06-16 08:09] LABS: BASO % 0.9 % (0-2.0); EOS % 1.4 % (0-4.5); HEMATOCRIT 35.6 % (32.4-45.2); HEMOGLOBIN 11.2 GM/dL (10.7-15.3); LYMPH % 11.6 % (8-40); MCHC 31.4 g/dl (32.0-36.0); MEAN CELL VOLUME 69.9 fl (80-96); MEAN PLT VOLUME 9.2 fl (7.5-11.1); MONO % 7.4 % (3.8-10.2); NEUT % 78.7 % (42.8-82.8); PLATELET COUNT 230 10^3/uL (134-434); RDW 25.1 % (11.6-15.6); WHITE BLOOD COUNT 11.2 K/mm3 (4.0-10.0)
[2024-06-16 08:31] LABS: POTASSIUM 4.1 mmol/L (3.5-5.1)
[2024-06-16 08:32] LABS: CALCIUM 9.7 mg/dL (8.5-10.1)
[2024-06-16 08:33] LABS: BLOOD UREA NITROGEN 15.1 mg/dL (7-18)
[2024-06-16 08:36] LABS: CREATININE 0.9 mg/dL (0.55-1.3)
[2024-06-16] MEDS: ENOXAPARIN NA (PORCINE) 40 MG/0.4 ML DISP.SYRIN SQ SCH (10:01)
[2024-06-16] MEDS: SERTRALINE HCL 50 MG TABLET (FP) PO SCH (10:02)
[2024-06-18 04:08] VITALS: BP 144/68; PULSE 72; RESP 21; TEMP 98.3
== END 2024-06-18 05:57 | disposition short-term general hospital (02) ==
LOC: JER 12:17 → JERBED 15:21 → J7W 23:04
PROVIDERS: ADMIT Family Medicine; ATTEND Family Medicine
PROC: 30233N1 Transfusion of Nonautologous Red Blood Cells into Peripheral Vein, Percutaneous Approach (ICD-10-PCS; 2024-06-09)
PROC: 3E033GC Introduction of Other Therapeutic Substance into Peripheral Vein, Percutaneous Approach (ICD-10-PCS; 2024-06-09)
PROC: 3E023GC Introduction of Other Therapeutic Substance into Muscle, Percutaneous Approach (ICD-10-PCS; 2024-06-09)
PROC: 0DJ08ZZ Inspection of Upper Intestinal Tract, Via Natural or Artificial Opening Endoscopic (ICD-10-PCS; principal; 2024-06-11 14:00)
PROC: 0DB78ZX Excision of Stomach, Pylorus, Via Natural or Artificial Opening Endoscopic, Diagnostic (ICD-10-PCS; 2024-06-12)
DX: C16.9 Malignant neoplasm of stomach, unspecified (principal); D50.9 Iron deficiency anemia, unspecified; J44.9 Chronic obstructive pulmonary disease, unspecified; I10 Essential (primary) hypertension; R91.8 Other nonspecific abnormal finding of lung field; E11.9 Type 2 diabetes mellitus without complications; R10.13 Epigastric pain; Z99.81 Dependence on supplemental oxygen; Z72.0 Tobacco use
CPT/HCPCS: 0241U-QW; 36415; 36430; 71045-TC-FY; 71250-TC; 74160-TC; 77074-TC-FY; 80048; 80053; 82728; 82962; 83540; 83550; 84466; 84484; 85025; 85610; 85730; 86850; 86900; 86901; 86922; 87635; 88305-TC; 88341-TC; 88342-TC; 93005; 93010; 96372; 96374; 97116-GP; 99285-25; G0378; P9038; P9058